=== PATIENT | male | born 1945 | race Caucasian/White ===

== ENCOUNTER 2018-09-29 11:45 | Outpatient (CLI) | payer OTHER | END 2018-09-29 11:46 | disposition home or self-care (01) | DRG 914 | LOC: CONVCARE 11:45 | PROVIDERS: ATTEND Orthopaedic Surgery | DX: S49.91XA Unspecified injury of right shoulder and upper arm, initial encounter (principal); M75.41 Impingement syndrome of right shoulder | CPT/HCPCS: 73030 ==